=== PATIENT | male | born 1965 | race Asian ===

== ENCOUNTER 2018-03-04 10:23 | Emergency (ER) | payer OTHER ==
[~2018-03-04] VITALS: Ht 157.5 cm; Wt 68.0 kg
[2018-03-04] MEDS ORDERED: AMLODIPINE BESYL5 MG (11:45)
[2018-03-04] MEDS ORDERED: PNEU16DI2 (11:45)
== END 2018-03-04 16:20 | disposition home or self-care (01) ==
LOC: ER 10:23
DX: I16.0 Hypertensive urgency (principal); I10 Essential (primary) hypertension